=== PATIENT | female | born 1980 | race Caucasian/White ===

== ENCOUNTER 2018-12-20 17:59 | Emergency (ER) | payer OTHER ==
[2018-12-20 18:12] VITALS: RESP 18; TEMP 98.1
[2018-12-20] MEDS ORDERED: KETOROLAC 30 MG/ML 1 ML VIAL IM STA (18:22)
--- NOTE | 2018-12-20 18:27 | ED ---
General Adult HPI - General Chief complaint: Extremity Injury, Lower Stated complaint: Fall-ankle Injury Time Seen by Provider: 12/20/18 18:14 Source: patient Mode of arrival: wheelchair Limitations: physical limitation - History of Present Illness Initial comments: Patient is a 38-year-old female presenting to the emergency department with a chief complaint of ankle pain. Patient reports the incident occurred about 2 hours ago prior to ED arrival when she missed a step and rolled her left ankle. Patient does report edema on the lateral aspect of the left ankle. Patient also does report mid foot tenderness. Patient denies any numbness or tingling. Patient reports pain with inversion and plantar and dorsiflexion. Patient denies any calf tenderness or knee pain. Patient denies taking medication to alleviate the symptoms. Patient reports the pain is alleviated at rest. Patient reports the pain is a 9 and throbbing. - Related Data Allergies Allergy/AdvReac Type Severity Reaction Status Date / Time No Known Allergies Allergy Verified 12/20/18 18:13 Review of Systems ROS Statement: Those systems with pertinent positive or pertinent negative responses have been documented in the HPI. ROS Other: All systems not noted in ROS Statement are negative. Past Medical History Past Medical History: No Reported History History of Any Multi-Drug Resistant Organisms: None Reported Past Surgical History: Adenoidectomy, Hysterectomy, Tonsillectomy Past Psychological History: Depression Smoking Status: Current every day smoker Past Alcohol Use History: None Reported Past Drug Use History: Marijuana General Exam Limitations: physical limitation General appearance: alert, in no apparent distress Head exam: Present: atraumatic, normocephalic, normal inspection Eye exam: Present: normal appearance, PERRL, EOMI Pupils: Present: normal accommodation ENT exam: Present: normal exam, normal oropharynx, mucous membranes moist, normal external ear exam Neck exam: Present: normal inspection, full ROM Respiratory exam: Present: normal lung sounds bilaterally Cardiovascular Exam: Present: regular rate, normal rhythm, normal heart sounds Extremities exam: Present: tenderness (Midfoot tenderness and tenderness along the lateral malleolus.), normal capillary refill, joint swelling (Left ankle), other (+2 dorsalis pedis and posterior tibialis. Left foot neurovascularly in tact.). Absent: normal inspection (Swelling of the left ankle along the lateral malleolus. No discoloration.), full ROM (Limited range of motion with inversion, dorsi and plantarflexion), pedal edema, calf tenderness Back exam: Present: normal inspection, full ROM Neurological exam: Present: alert, oriented X3 Psychiatric exam: Present: normal affect, normal mood Skin exam: Present: warm, intact, normal color Course Vital Signs 12/20/18 18:10 Temperature 98.1 F Pulse Rate 92 Respiratory 18 Rate Blood Pressure 145/104 O2 Sat by Pulse 98 Oximetry Procedures - Orthopedic Splinting/Casting Injury #1 Side: left Upper Extremity Immobilizer: Alireza wrap Lower Extremity Injury Location: ankle Medical Decision Making - Medical Decision Making Patient is a 38-year-old female presenting to the emergency department with a chief complaint of left ankle pain. Patient reports she rolled her ankle when she missed a step. A physical examination patient does have tenderness and edema along the lateral malleoli. Patient does have pain and limited range of motion. X-ray of the left ankle and foot is negative for acute fracture or dislocation. Only soft tissue swelling noted. Alireza wrap was applied. Patient advised to apply ice compress multiple times a day for 10-15 minutes each to minimize symptoms. Patient vised alternate between Tylenol and ibuprofen for pain control. Strict return parameters were thoroughly discussed with patient was understanding and agreeable. Patient advised to follow-up with orthopedics if symptoms not improved within a week. Case discussed with physician. Disposition Clinical Impression: Sprain of ankle, left Disposition: HOME SELF-CARE Condition: Stable Instructions (If sedation given, give patient instructions): Ankle Sprain (ED) Additional Instructions: Apply ice compress multiple times a day for 10-15 minutes each. Alternate between Tylenol and ibuprofen for pain control. Please follow-up with orthopedics if symptoms do not improve within a week. Please return to emergency department if symptoms worsen. Is patient prescribed a controlled substance at d/c from ED?: No Referrals: Kristal Solo MD [Primary Care Provider] - 1-2 days Virginia Cheng DO [Doctor of Osteopathic Medicine] - 1-2 days Time of Disposition: 19:41
--- NOTE | 2018-12-20 19:05 | XR ---
EXAMINATION TYPE: XR ankle complete LT DATE OF EXAM: 12/20/2018 COMPARISON: NONE HISTORY: Pain and swelling TECHNIQUE: 3 views FINDINGS: There is soft tissue swelling over the lateral malleolus. Ankle mortise is anatomic. I see no fracture. IMPRESSION: Moderate soft tissue swelling. No fracture seen.
--- NOTE | 2018-12-20 19:06 | XR ---
EXAMINATION TYPE: XR foot complete LT DATE OF EXAM: 12/20/2018 COMPARISON: NONE HISTORY: Pain and swelling TECHNIQUE: 3 views FINDINGS: Metatarsals are intact. There is some soft tissue swelling around the ankle. I see no fract ure nor dislocation. Tarsal bones are intact. IMPRESSION: Soft tissue swelling. No fracture.
[2018-12-20 19:51] VITALS: BP 136/72; PULSE 90
== END 2018-12-20 19:52 | disposition home or self-care (01) ==
LOC: EC 17:59
DX: S93.402A Sprain of unspecified ligament of left ankle, initial encounter (principal); F17.200 Nicotine dependence, unspecified, uncomplicated; W19.XXXA Unspecified fall, initial encounter
CPT/HCPCS: 73610; 73630; 99283; 96372; J1885

== ENCOUNTER → 2019-12-03 | Outpatient (CLI) | payer OTHER ==
--- NOTE | 2019-12-03 16:04 | XR ---
EXAMINATION TYPE: XR lumbosacral spine min 4V DATE OF EXAM: 12/03/2019 CLINICAL HISTORY: Sciatica right side. Lower back pain with right-sided radiculopathy after straining injury 4 days ago. TECHNIQUE: Frontal, lateral, and oblique images of the lumbar spine are obtained. COMPARISON: 09/04/2013 lumbar radiograph FINDINGS: There are 6 lumbar type vertebral bodies identified, with lumbosacral transitional vertebr ae with left-sided partial sacralization of L6. The lumbar spine shows satisfactory alignment withou t evidence of acute fracture or dislocation. Vertebral body heights and disk space heights are within normal limits. There is mild endplate degenerative spurring. The oblique images appear within veronica l limits. 2 mm radiopaque density over the left upper quadrant on frontal view. IMPRESSION: 1. No acute fracture or dislocation is seen in the lumbar spine. 2. 6 lumbar type vertebral bodies, with lumbosacral transitional vertebrae with left-sided partial sa cralization of L6. 3. Mild degenerative endplate spurring. 4. 2 mm radiopaque density seen only on frontal view may be related to left nephrolithiasis versus ov erlying bowel contents.
== END | disposition home or self-care (01) ==
LOC: RADXRYALE 14:31
PROVIDERS: ATTEND Internal Medicine
DX: M47.27 Other spondylosis with radiculopathy, lumbosacral region (principal); Q76.49 Other congenital malformations of spine, not associated with scoliosis
CPT/HCPCS: 72110

== ENCOUNTER → 2020-01-02 | Outpatient (CLI) | payer OTHER ==
--- NOTE | 2020-01-05 09:54 | MM ---
Reason for exam: screening (asymptomatic). Last mammogram was performed 8 years and 4 months ago. History: Patient is postmenopausal. Family history of breast cancer in maternal grandmother, breast cancer in paternal grandmother, and breast cancer in maternal aunt. Physical Findings: A clinical breast exam by your physician is recommended on an annual basis and results should be correlated with mammographic findings. MG 3D Screening Mammo W/Cad Bilateral CC and MLO view(s) were taken. Prior study comparison: August 31, 2011, CAD bilateral diagnostic mammogram. April 22, 2010, CAD bilateral diagnostic mammogram. The breast tissue is heterogeneously dense. This may lower the sensitivity of mammography. There is no discrete abnormality. No significant changes when compared with prior studies. ASSESSMENT: Negative, BI-RAD 1 RECOMMENDATION: Routine screening mammogram of both breasts in 1 year.
== END | disposition home or self-care (01) ==
LOC: RADMAMWWP 10:11
PROVIDERS: ATTEND Internal Medicine
DX: Z12.31 Encounter for screening mammogram for malignant neoplasm of breast (principal)
CPT/HCPCS: 77063; 77067

== ENCOUNTER → 2020-09-29 | Outpatient (CLI) | payer OTHER ==
--- NOTE | 2020-09-30 10:02 | XR ---
EXAMINATION TYPE: XR knee complete LT DATE OF EXAM: 09/29/2020 COMPARISON: NONE HISTORY: Pain TECHNIQUE: Three views are submitted. FINDINGS: Joint spaces are preserved. Osseous structures are intact. No acute fracture seen. IMPRESSION: 1. No acute fracture or dislocation.
== END | disposition home or self-care (01) ==
LOC: RADXRYALE 16:17
PROVIDERS: ATTEND Internal Medicine
DX: M25.562 Pain in left knee (principal)

== ENCOUNTER → 2024-02-07 | Outpatient (CLI) | payer OTHER ==
--- NOTE | 2024-02-14 11:58 | MM ---
Reason for Exam: Screening (asymptomatic). Last mammogram was performed 4 year(s) and 1 month(s) ago. Patient History: Menarche at age 10. First Full-Term at age 16. Left ovary removed at age 23. Hysterectomy at age 23. Postmenopausal. Paternal grandmother had breast cancer. Maternal grandmother had breast cancer, age 65. Maternal aunt had breast cancer, age 55. Maternal aunt had breast cancer, age 48. Paternal grandmother tested for BRCA1 outcome was negative. Maternal aunt tested for BRCA1 outcome was negative. Risk Values: Natali 5 year model risk: 0.6%. NCI Lifetime model risk: 7.0%. Prior Study Comparison: 04/22/2010 Bilateral Diagnostic Mammogram, [facility]. 08/31/2011 Bilateral Diagnostic Mammogram, [facility]. 01/02/2020 Bilateral Screening Mammogram, [facility]. Tissue Density: There are scattered areas of fibroglandular density. Findings: Analyzed By CAD. Right breast: There is no suspicious group of microcalcifications or new suspicious mass. Left breast: There is no suspicious group of microcalcifications or new suspicious mass. Overall Assessment: Negative, BI-RAD 1 Management: Screening Mammogram of both breasts in [address] [facility] will attempt to contact patient to return for supplemental views and ultrasound if indicated. Patient should continue monthly self-breast exams. A clinical breast exam by your physician is recommended on an annual basis. This exam should not preclude additional follow-up of suspicious palpable abnormalities. Note on Natali scores and lifetime risk: 1. A Natali score greater than 3% is considered moderate risk. If this is the case, consider specialist referral to assess eligibility for a risk reducing agent. 2. If overall lifetime risk for the development of breast cancer is 20% or higher, the patient may qualify for future screening with alternating mammogram and breast MRI. [facility], , 02/14/2024 11:55 AM. Electronically signed and approved by: Elder Gillespie DO
== END | disposition home or self-care (01) ==
LOC: RADMAMWWP 12:13
PROVIDERS: ATTEND Internal Medicine
DX: Z12.31 Encounter for screening mammogram for malignant neoplasm of breast (principal); Z78.0 Asymptomatic menopausal state; Z80.3 Family history of malignant neoplasm of breast; Z90.721 Acquired absence of ovaries, unilateral; R92.323 Mammographic fibroglandular density, bilateral breasts
CPT/HCPCS: 77063; 77067